=== PATIENT | male | born 1955 | race African-American/Black ===

== ENCOUNTER 2016-06-05 18:32 | Emergency (ER) | payer OTHER ==
[2016-06-05 18:46] VITALS: BP 121/74
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
[2016-06-05] MEDS ORDERED: MOBIC15 M1 PO (20:57)
== END 2016-06-05 21:25 ==
LOC: ERH 18:32
DX: S39.012A Strain of muscle, fascia and tendon of lower back, initial encounter (principal); S16.1XXA Strain of muscle, fascia and tendon at neck level, initial encounter; V49.40XA Driver injured in collision with unspecified motor vehicles in traffic accident, initial encounter